=== PATIENT | female | born 1960 | race Two or more races ===

== ENCOUNTER 2023-02-13 10:30 | Day surgery (SDC) | payer OTHER ==
[~2023-02-13] VITALS: Ht 154.9 cm; Wt 45.4 kg
[~2023-02-13 10:30] MED LIST: GLUMETZA1000 MG PO; [UNRECOGNIZED DRUG - OTHER] PO
== END 2023-02-13 18:00 | disposition home or self-care (01) ==
LOC: CIR.AMB 10:30
PROVIDERS: ATTEND Orthopaedic Surgery
DX: M75.02 Adhesive capsulitis of left shoulder (principal); T84.498A Other mechanical complication of other internal orthopedic devices, implants and grafts, initial encounter; M24.112 Other articular cartilage disorders, left shoulder; Z20.822 Contact with and (suspected) exposure to COVID-19; E11.9 Type 2 diabetes mellitus without complications; Z79.84 Long term (current) use of oral hypoglycemic drugs